=== PATIENT | male | born 1990 | race African-American/Black ===

== ENCOUNTER 2020-03-17 19:56 | Emergency (ER) | payer OTHER, SELFPAY ==
--- NOTE | 2020-03-17 21:32 | EDPHYS ---
Physician Documentation [facility] Name: Presley Ulrich Jr Age: 30 yrs Sex: Male : 1990 Arrival Date: 03/17/2020 Time: 20:25 Bed 4 Private MD: ED Physician Aristides Lee HPI: 03/17 21:18 This 30 yrs old Black Male presents to ER via EMS with complaints of SOB. tw4 21:18 The patient has shortness of breath at rest. Onset: The symptoms/episode began/occurred tw4 today. Duration: The symptoms are continuous, and are unchanged since they started. The patient's shortness of breath has no apparent modifying factors. Associated signs and symptoms: The patient has no apparent associated signs or symptoms. Severity of symptoms: At their worst the symptoms were moderate in the emergency department the symptoms are unchanged. The patient has not experienced similar symptoms in the past. Historical: - Allergies: 20:47 PENICILLINS; lp1 - Home Meds: 20:47 None [Active]; lp1 - PMHx: 20:47 None; lp1 - PSHx: 20:47 None; lp1 - Immunization history:: Adult Immunizations up to date. - Social history:: Smoking status: Patient denies any tobacco usage or history of. ROS: 21:18 Constitutional: Negative for fever, chills, and weight loss, Eyes: Negative for injury, tw4 pain, redness, and discharge, Cardiovascular: Negative for chest pain, palpitations, and edema, Abdomen/GI: Negative for abdominal pain, nausea, vomiting, diarrhea, and constipation, Back: Negative for injury and pain, MS/Extremity: Negative for injury and deformity, Skin: Negative for injury, rash, and discoloration, Neuro: Negative for headache, weakness, numbness, tingling, and seizure. 21:18 Respiratory: Positive for shortness of breath. Exam: 21:18 Constitutional: This is a well developed, well nourished patient who is awake, alert, tw4 and in no acute distress. Head/Face: Normocephalic, atraumatic. Chest/axilla: Normal chest wall appearance and motion. Nontender with no deformity. No lesions are appreciated. Cardiovascular: Regular rate and rhythm with a normal S1 and S2. No gallops, murmurs, or rubs. Normal PMI, no JVD. No pulse deficits. Abdomen/GI: Soft, non-tender, with normal bowel sounds. No distension or tympany. No guarding or rebound. No evidence of tenderness throughout. Back: No spinal tenderness. No costovertebral tenderness. Full range of motion. Skin: Warm, dry with normal turgor. Normal color with no rashes, no lesions, and no evidence of cellulitis. MS/ Extremity: Pulses equal, no cyanosis. Neurovascular intact. Full, normal range of motion. Neuro: Awake and alert, GCS 15, oriented to person, place, time, and situation. Cranial nerves II-XII grossly intact. Motor strength 5/5 in all extremities. Sensory grossly intact. Cerebellar exam normal. Normal gait. 21:18 Respiratory: the patient does not display signs of respiratory distress, Respirations: normal, Breath sounds: are clear throughout. Vital Signs: 20:42 BP 111 / 67; Pulse 97; Resp 14; Pulse Ox 100% on R/A; Weight 97.52 kg (R); Height 5 ft. lp1 8 in. (172.72 cm); Pain 0/10; 21:15 BP 118 / 78; Pulse 91; Resp 15; Pulse Ox 100% on R/A; lp1 20:42 Body Mass Index 32.69 (97.52 kg, 172.72 cm) lp1 MDM: 20:30 Patient medically screened. tw4 21:18 Differential diagnosis: Anemia Anxiety Reaction CHF exacerbation, Myocardial Infarction tw4 pneumonia, Pneumothorax Psychogenic reactive airway disease. Data reviewed: vital signs, nurses notes. Data interpreted: monitoring coordinator: Pulse oximetry: Interpretation: normal. Special discussion: I discussed with the patient/guardian in detail that at this point there is no indication for admission to the hospital. It is understood, however, that if the symptoms persist or worsen the patient needs to return immediately for re-evaluation. 03/17 20:29 Order name: CXR XRAY tw4 Administered Medications: No medications were administered Disposition: 03/17/20 21:32 Discharged to Home. Impression: Dyspnea, unspecified. - Condition is Stable. - Discharge Instructions: Shortness of Breath. - Medication Reconciliation Form, Thank You Letter, Antibiotic Education, Prescription Opioid Use form. - Follow up: Private Physician; When: Upon discharge from the Emergency Department; Reason: Recheck today's complaints, Continuance of care, Re-evaluation by your physician. - Problem is new. - Symptoms have improved. Signatures: Dispatcher [employer] EDMicaela Rivera, RN RN lp1 Elsa Lee RN Aristides Ochoa ea, MD MD tw4 Corrections: (The following items were deleted from the chart) 21:44 21:32 03/17/2020 21:32 Discharged to Home. Impression: Dyspnea, unspecified. Condition ea is Stable. Forms are Medication Reconciliation Form, Thank You Letter, Antibiotic Education, Prescription Opioid Use. Follow up: Private Physician; When: Upon discharge from the Emergency Department; Reason: Recheck today's complaints, Continuance of care, Re-evaluation by your physician. Problem is new. Symptoms have improved. tw4
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
[2020-03-17 21:52] VITALS: O2SAT 100
[2020-03-17 21:53] VITALS: BP 118/78
--- NOTE | 2020-03-18 08:22 | RAD REPORT ---
EXAM DESCRIPTION: RAD - Chest Single View - 03/17/2020 9:33 pm CLINICAL HISTORY: CHEST PAIN Chest pain. COMPARISON: No comparisons FINDINGS: Portable technique limits examination quality. The lungs are underinflated but grossly clear. The heart is normal in size. No displaced fractures. IMPRESSION: No acute intrathoracic process suspected.
== END 2020-03-17 21:44 | disposition home or self-care (01) ==
LOC: ER 19:56
DX: R06.00 Dyspnea, unspecified (principal); Z88.0 Allergy status to penicillin
CPT/HCPCS: 71045; 99284

== ENCOUNTER 2021-04-29 11:05 | Emergency (ER) | payer OTHER, SELFPAY ==
[2021-04-29] MEDS ORDERED: TETANUS & DIPHTHERIA TOX,ADULT 0.5 ML VIAL ONE (11:33)
[2021-04-29] MEDS ORDERED: NA CHLORIDE 0.9% 1,000 ML ONE ×2 (11:33→12:26)
[2021-04-29 11:41] LABS: Absolute Lymphocytes (CBC) 4.7 K/uL (0.7-4.9); Hematocrit 44.4 % (39.6-49.0); Lymphocytes % 58.5 % (15.3-44.8); MPV 8.2 fL (7.6-11.3); RBC Red Blood Cell Count 5.01 M/uL (4.33-5.43)
[2021-04-29 11:53] LABS: Potassium 3.9 mmol/L (3.5-5.1)
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
[2021-04-29 12:24] LABS: ALT/SGPT 51 U/L (12-78); AST/SGOT 29 U/L (15-37); Albumin 4.1 g/dL (3.4-5.0); Alkaline Phosphatase 71 U/L (45-117); Bilirubin Direct < 0.1 mg/dL (0-0.2); Bilirubin Total 0.2 mg/dL (0.2-1.0); Protein, Total 8.4 g/dL (6.4-8.2)
[2021-04-29 12:24] LABS: Protime INR 0.92
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
--- NOTE | 2021-04-29 12:39 | RAD REPORT ---
EXAM DESCRIPTION: RAD - Knee Right 3 View - 04/29/2021 11:57 am CLINICAL HISTORY: PAIN COMPARISON: No comparisons FINDINGS: No fracture, dislocation or periosteal reaction.No joint effusion seen. No joint space radha rowing. No foreign body or other soft tissue abnormality. IMPRESSION: Negative right knee. Clinical concerns for internal derangement or occult bony injury could be further assessed with MR im aging.
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
[2021-04-29 13:35] LABS: Platelet Estimate ADEQ
[2021-04-29 13:37] LABS: Blood Morphology Comment NOT SEEN (NOT SEEN)
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
[2021-04-29 15:45] VITALS: TEMP 97; O2SAT 100
[2021-04-29 15:47] VITALS: BP 128/77
[2021-04-29 19:11] LABS: Magnesium 3.4
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
== END 2021-04-29 15:20 | disposition home or self-care (01) ==
LOC: ER 11:05
DX: R07.9 Chest pain, unspecified (principal); S60.512A Abrasion of left hand, initial encounter; S60.511A Abrasion of right hand, initial encounter; S80.211A Abrasion, right knee, initial encounter; E86.0 Dehydration; V49.40XA Driver injured in collision with unspecified motor vehicles in traffic accident, initial encounter; Y35.833A Legal intervention involving a conducted energy device, suspect injured, initial encounter; Z23 Encounter for immunization; Z88.0 Allergy status to penicillin
CPT/HCPCS: 93005; 85025; 80048; 36415; 86900; 83735; 86850; 85610; 86901; 80076; 84484; 70450; 72125; 71260; 74177; 73130 ×2; 73562; 90714; Q9967; J7030 ×2; 90471; 96360; 96361; 99284